=== PATIENT | female | born 1970 | race African-American/Black ===

== ENCOUNTER 2018-02-17 09:43 | Observation (INO) | payer OTHER ==
[~2018-02-17 09:43] MED LIST: BUPIVACAINE HCL 0.25%/EPI. PF 30 ML VIAL IJ ONE; DEXAMETHASONE SOD PHOS 4 MG/ML VIAL ONE; ENOXAPARIN SODIUM 40 MG/0.4 ML DISP.SYRIN SQ ONE; FAMOTIDINE/PF 20 MG/2 ML VIAL ONE; LACTATED RINGERS 1,000 ML IV.SOLN IV ONE; LIDOCAINE HCL/PF 2% 100 MG/5 ML VIAL IJ ONE; ONDANSETRON HCL/PF 4 MG/ 2ML VIAL ONE; PHENYLEPHRINE HCL 10 MG/1 ML ONE; PROPOFOL 200 MG/20 ML VIAL IV ONE; ROCURONIUM BROMIDE 10 MG/ML 5ML VIAL ONE; SEVOFLURANE 250 ML LIQUID IH ONE; SUGAMMADEX 200 mg/2mL 200 MG/2 ML VIAL IV ONE; ceFAZolin SODIUM 1 GM VIAL ONE
[2018-02-17] MEDS ORDERED: fentaNYL CITRATE/PF 100 MCG/ 2ML AMP ONE ×2 (10:00→14:26)
[2018-02-17] MEDS ORDERED: LACTATED RINGERS 1,000 ML IV ONE (11:07)
[2018-02-17] MEDS ORDERED: FAMOTIDINE/PF 20 MG/2 ML VIAL ONE (11:54)
[2018-02-17] MEDS ORDERED: ENOXAPARIN SODIUM 40 MG/0.4 ML DISP.SYRIN SQ ONE (12:15)
[2018-02-17] MEDS ORDERED: HYDROcodone /APAP 5/325 1 EACH TABLET ONE (14:53)
[2018-02-17] MEDS ORDERED: ONDANSETRON HCL/PF 4 MG/ 2ML VIAL ONE (14:54)
[2018-02-17] MEDS ORDERED: ONDANSETRON HCL/PF 4 MG/ 2ML VIAL IVP PRN (16:53)
[2018-02-17] MEDS ORDERED: KETOROLAC TROMETHAMINE 30 MG/1ML VIAL IVP PRN (16:53)
[2018-02-17] MEDS ORDERED: HYDROCODONE/ACETAMINOPHEN 15 ML SOLUTION PO PRN (16:53)
[2018-02-17] MEDS ORDERED: LEVALBUTEROL HCL 1.25 MG/3 ML AMPUL.NEB NEB PRN (16:54)
[2018-02-17] MEDS ORDERED: METOPROLOL TARTRATE 50 MG TABLET PO ONE (16:55)
--- NOTE | 2018-02-17 16:59 | History and Physical Report ---
History of Present Illnes - History of Present Illness Reason for Visit: Surgery History of Present Illness: Patient presents for surgery to remove lap band she had placed in 2010. Hasn't realized the weight loss she wanted and is planning to get a sleeve gastrectomy as soon as possible. She has been feeling well. - Past Medical History Cardiac: HTN Pulmonary: Asthma Psych: Anxiety, Depression Musculoskeletal: Chronic low back pain, Osteoarthritis Infectious Disease: Other (H/o Hep C - s/p treatment 1993) - Past Surgical History Past Surgical History: (x1), Hysterectomy (partial for fibroids), Hernia Repair ([facility]), Other (Lap Band - 2010) - Past Social History Smoke: No Alcohol: None Drugs: None Lives: With Family () - Health Maintenance Health Maintenance: Mammogram. denies: Colonoscopy Influenza Vaccine: Current for this Influenza Season Pneumonia Vaccine: No Resuscitation Status: full Review of Systems - Review of Systems Constitutional: negative: Fever, Weakness Eyes: negative: pain ENT: negative: Ear Pain, Nose Discharge Respiratory: negative: Cough, Shortness of Breath Cardiovascular: negative: Chest Pain Gastrointestinal: negative: Nausea, Vomiting Genitourinary: negative: Dysuria Musculoskeletal: negative: Neck Pain Skin: negative: Rash Neurological: negative: Weakness - Medications/Allergies Allergies/Adverse Reactions: Allergies Allergy/AdvReac Type Severity Reaction Status Date / Time acetaminophen [From Vicodin] Allergy Rash Verified 02/17/18 17:30 hydrocodone [From Vicodin] Allergy Rash Verified 02/17/18 17:30 ibuprofen Allergy Rash Verified 02/17/18 17:30 Home Medications: Home Medications Aspirin 81 mg PO DAILY 02/17/18 Chlorthalidone 25 mg PO DAILY 02/17/18 Clonidine HCl [Catapres] 0.2 mg PO TID 02/17/18 Levalbuterol HCl [Xopenex] 1.25 mg NEB Q4H PRN 02/17/18 amLODIPine BESYLATE [Norvasc] 10 mg PO 0900 02/17/18 Current Inpatient Medications: Current Inpatient Medications Sodium Chloride (Normal Saline) 1,000 mls @ 150 mls/hr IV Q10H [facility] Ketorolac Tromethamine (Toradol) 30 mg IVP Q6 PRN PRN Reason: PAIN Stop: 02/22/18 16:52 Levalbuterol HCl (Xopenex) 1.25 mg NEB Q4 PRN PRN Reason: Wheezing Morphine Sulfate (Depodur) 2 mg IVP Q2 PRN PRN Reason: Severe Pain Ondansetron HCl (Zofran 4 Mg/2 Ml) 4 mg IVP Q6H PRN PRN Reason: Nausea / Vomiting Exam - Exam General: Alert, Oriented to Person, Oriented to Place, Oriented to Time, Cooperative, No acute distress, Morbidly Obese HEENT: Atraumatic, PERRLA, EOMI, Photophobia Neck: Normal Range of Motion Lungs: Clear to auscultation, Normal air movement Cardiovascular: Regular rate, Normal S1, Normal S2, No murmurs Abdomen: Normal bowel sounds, Soft. No: No tenderness (Tender epigastrium. No rebound or guarding.) Integumentary: Normal Extremities: No edema Neurological: Normal gait, Normal speech Psych/Mental Status: Mental status NL, Mood NL Assessment/Plan - Assessment/Plan (1) Morbid obesity Status: Acute Current Visit: Yes Plan: S/P lap band removal. Admit for IVF and pain control. Early ambulation to prevent DVT. PLan to d/c in am. Advance diet as tolerated. Contol nausea. (2) HTN (hypertension) Status: Chronic Current Visit: No Qualifiers: Hypertension type: essential hypertension Qualified Code(s): I10 - Essential (primary) hypertension Plan: Hold diuretics. Watch. (3) Abdominal pain Status: Acute Current Visit: Yes Qualifiers: Abdominal location: epigastric Qualified Code(s): R10.13 - Epigastric pain Plan: Work to control pain with IV pain meds post op and move to oral soon. (4) Asthma Status: Chronic Current Visit: Yes Qualifiers: Asthma severity: mild Asthma persistence: intermittent Asthma complication type: unspecified Qualified Code(s): J45.20 - Mild intermittent asthma, uncomplicated Plan: MIld wheezing noted immediately post op but no drop in O2 SAT. WAtch. Xopenex prn. VTE Assessment - RISK FACTOR SCORE VTE RISK FACTOR SCORES: AGE 40-60 YEARS, MINOR SURGERY/ ANESTHESIA TIME < 1 HOUR - RISK VTE MODERATE RISK: SCORE OF 2 (RISK PROXIMAL DVT 2-4%) PROPHYAXIS NEEDED
[2018-02-17] MEDS: 0.9 % SODIUM CHLORIDE 1,000 ML IV SCH (17:56)
[2018-02-17] MEDS: CloNIDine HCL 0.1 MG TABLET PO SCH (18:00)
[2018-02-17] MEDS: BACLOFEN 10 MG TABLET PO SCH (18:57)
[2018-02-17] MEDS: GABAPENTIN 300 MG CAPSULE PO SCH (18:58)
[2018-02-17 19:04] VITALS: BMI 111.3
[2018-02-17] MEDS: MORPHINE SULFATE 2 MG/ML PREFILLED SYR IVP PRN (20:33)
[2018-02-17] MEDS ORDERED: amLODIPine BESYLATE 5 MG TABLET ONE (21:11)
[2018-02-17] MEDS ORDERED: ASPIRIN EC 81 MG TABLET.DR ONE (21:11)
[2018-02-17] MEDS: TOPIRAMATE 50 MG TABLET PO SCH (21:55)
[2018-02-18] MEDS: 0.9 % SODIUM CHLORIDE 1,000 ML IV SCH ×2 (00:15→06:08)
[2018-02-18] MEDS: MORPHINE SULFATE 2 MG/ML PREFILLED SYR IVP PRN ×3 (03:58→11:08)
--- NOTE | 2018-02-18 08:37 | Discharge Summary ---
Discharge Summary - Discharge Sumary History of Present Illness: Patient presents for surgery to remove lap band she had placed in 2010. Hasn't realized the weight loss she wanted and is planning to get a sleeve gastrectomy as soon as possible. She has been feeling well. Condition at Discharge: Stable Home Medications: Ambulatory Orders Medication Instructions Recorded Aspirin 81 mg PO DAILY 02/17/18 Chlorthalidone 25 mg PO DAILY 02/17/18 Clonidine HCl [Catapres] 0.2 mg PO TID 02/17/18 Levalbuterol HCl [Xopenex] 1.25 mg NEB Q4H PRN 02/17/18 amLODIPine BESYLATE [Norvasc] 10 mg PO 0900 02/17/18 Consultations this Visit: None Procedures this Visit: None Allergies/Adverse Reactions: Allergies Allergy/AdvReac Type Severity Reaction Status Date / Time acetaminophen [From Vicodin] Allergy Rash Verified 02/17/18 17:30 hydrocodone [From Vicodin] Allergy Rash Verified 02/17/18 17:30 ibuprofen Allergy Rash Verified 02/17/18 17:30 Patient Problems: Current Active Problems Problem Status Onset Abdominal pain Acute Morbid obesity Acute Asthma Chronic Discharge Summary: Patient was admitted to OBS after lap band removal. She tolerated her clear liquid diet. Pain was well controlled. Discharged home in good condition. Hospital Course: Discharge Dx: Morbid obesity - s/p lap band removal. HTN. ASthma. Disposition - home
[2018-02-18] MEDS ORDERED: amLODIPine BESYLATE 5 MG TABLET PO SCH (09:00)
[2018-02-18] MEDS ORDERED: ASPIRIN EC 81 MG TABLET.DR PO SCH (09:00)
[2018-02-18] MEDS: CloNIDine HCL 0.1 MG TABLET PO SCH (10:00)
[2018-02-18] MEDS: GABAPENTIN 300 MG CAPSULE PO SCH (10:57)
[2018-02-18] MEDS: BACLOFEN 10 MG TABLET PO SCH (10:57)
[2018-02-18] MEDS: TOPIRAMATE 50 MG TABLET PO SCH (10:58)
[2018-02-18 12:12] VITALS: BP 124/72
== END 2018-02-18 11:35 | disposition home or self-care (01) ==
LOC: SOUTH 09:43 → UNDOADMOB 16:33 → SOUTH 16:33 → UNDODISOB 02-18 11:35
PROVIDERS: ADMIT Family Medicine; ATTEND Family Medicine
DX: Z98.84 Bariatric surgery status (principal); Z48.815 Encounter for surgical aftercare following surgery on the digestive system; I10 Essential (primary) hypertension; J45.909 Unspecified asthma, uncomplicated
CPT/HCPCS: 43774; A9270; G0378; G0379; J0690; J1100; J1650; J2001; J2270; J2370; J2405; J2704; J3010; J7030; J7120; 99217; 99219; S0028; S1016

== ENCOUNTER 2018-05-19 08:13 | Day surgery (SDC) | payer OTHER ==
[2018-05-19] MEDS ORDERED: LACTATED RINGERS 1,000 ML IV ONE (08:29)
[2018-05-19] MEDS ORDERED: SCOPOLAMINE HYDROBROMIDE 1.5MG/72HR PATCH TD ONE ×2 (08:29→08:48)
[2018-05-19] MEDS ORDERED: PREGNANCY TEST KIT 1 EACH KIT MC ONE (08:29)
[2018-05-19] MEDS ORDERED: LEVALBUTEROL HCL 1.25 MG/3 ML VIAL.NEB IH ONE (08:30)
[2018-05-19] MEDS ORDERED: FAMOTIDINE 20 MG/2 ML VIAL ONE ×2 (08:30→08:48)
[2018-05-19] MEDS ORDERED: BUPIV. HCL 0.25% (2.5MG/ML)/EPI. (1:200,000) PF 30 ML VIAL IJ ONE (08:48)
[2018-05-19] MEDS ORDERED: LIDOCAINE HCL 2% PF 100MG/5ML VIAL IJ ONE (08:48)
[2018-05-19] MEDS ORDERED: SEVOFLURANE 250 ML LIQUID IH ONE (08:48)
[2018-05-19] MEDS ORDERED: fentaNYL CITRATE/PF 100 MCG/2 ML INJ. ONE ×2 (08:48→13:47)
[2018-05-19] MEDS ORDERED: MIDAZOLAM HCL 2 MG/2 ML VIAL ONE (08:48)
[2018-05-19] MEDS ORDERED: SODIUM CHLORIDE IRRIG SOLUTION 3,000 ML IRRIG.SOLN IR ONE (08:48)
[2018-05-19] MEDS ORDERED: PROPOFOL 200 MG/20 ML VIAL IV ONE (08:48)
[2018-05-19] MEDS ORDERED: FENTANYL CITRATE/PF 250 MCG/5 ML INJ. ONE (08:48)
[2018-05-19] MEDS ORDERED: ROCURONIUM BROMIDE 10 MG/ML 5ML VIAL ONE (08:48)
[2018-05-19] MEDS ORDERED: ceFAZolin SODIUM 1 GM VIAL ONE (08:48)
[2018-05-19] MEDS ORDERED: LACTATED RINGERS 1,000 ML IV.SOLN IV ONE ×2 (08:48)
[2018-05-19] MEDS ORDERED: DEXAMETHASONE SODIUM PHOSPHATE 10 MG/ML VIAL ONE (08:48)
[2018-05-19] MEDS ORDERED: SUGAMMADEX SODIUM 200 MG/2 ML VIAL IV ONE (08:48)
[2018-05-19] MEDS ORDERED: GLYCOPYRROLATE 0.2 MG/1 ML 1 ML ONE (08:48)
[2018-05-19] MEDS ORDERED: LIDOCAINE HCL 1% PF 300MG/30ML VIAL ONE (08:48)
[2018-05-19] MEDS ORDERED: ePHEDrine SULFATE 50 MG/1 ML IVP ONE (08:48)
[2018-05-19] MEDS ORDERED: ONDANSETRON HCL/PF 4 MG/ 2ML VIAL ONE (08:48)
[2018-05-19] MEDS ORDERED: ENOXAPARIN SODIUM 40 MG/0.4 ML DISP.SYRIN SQ ONE (10:08)
== END 2018-05-19 14:31 | disposition other institution (70) ==
LOC: OPSURG 08:13
PROVIDERS: ATTEND Surgery
DX: E66.01 Morbid (severe) obesity due to excess calories (principal); Z68.42 Body mass index [BMI] 45.0-49.9, adult; I10 Essential (primary) hypertension; K66.0 Peritoneal adhesions (postprocedural) (postinfection); M19.90 Unspecified osteoarthritis, unspecified site
CPT/HCPCS: 43235; 43775; 88305; A9270; J0690; J2001; J2250; J2405; J2704; J3010; J3490; J7120; J7614; S0028; J1650

== ENCOUNTER 2018-05-19 14:32 | Inpatient (IN) | payer OTHER ==
--- NOTE | 2018-05-19 14:47 | History and Physical Report ---
History of Present Illnes - History of Present Illness Reason for Visit: Weight loss surgery History of Present Illness: Patient underwent gastric sleeve today. She has tried numerous weight loss techniques including lap band (had that removed in 2018), diet and exercise. Due to her co-morbidities she underwent gastrectomy. Due to nausea and pain she will be admitted to Acute care for IV hydration, IV antiemetics, and IV pain control. - Past Medical History Cardiac: HTN Pulmonary: Asthma, Sleep Apnea Hepatobiliary: Hep A/B/C (Hep C - s/p treatment in 1993) Psych: Anxiety, Depression Musculoskeletal: Chronic low back pain (Chronic percocet use), Osteoarthritis Infectious Disease: Other (H/o Hep C - s/p treatment 1993) - Past Surgical History Past Surgical History: (x1), Hysterectomy (partial for fibroids), Hernia Repair ([facility]), Other (Lap Band - 2010) - Past Family History Mother Family History: None Father Family History: (LIver disease) - Past Social History Smoke: No Alcohol: None Drugs: None Lives: With Family () - Health Maintenance Health Maintenance: Mammogram. denies: Colonoscopy Influenza Vaccine: Current for this Influenza Season Pneumonia Vaccine: Yes Review of Systems - Review of Systems Constitutional: negative: Fever, Weakness Eyes: negative: pain ENT: negative: Ear Pain, Nose Congestion Respiratory: negative: Cough, Shortness of Breath Cardiovascular: negative: Chest Pain, Palpitations Gastrointestinal: negative: Nausea, Vomiting, Abdominal Pain, Diarrhea, Constipation Genitourinary: negative: Dysuria Musculoskeletal: Back Pain Skin: negative: Rash Neurological: negative: Weakness - Medications/Allergies Allergies/Adverse Reactions: Allergies Allergy/AdvReac Type Severity Reaction Status Date / Time hydrocodone [From Vicodin] Allergy Rash Verified 02/17/18 17:30 ibuprofen Allergy Rash Verified 02/17/18 17:30 Home Medications: Home Medications Albuterol Sulfate [Proair HFA] 2 inh IH Q4H PRN 05/19/18 Metoprolol Tartrate 100 mg PO D 05/19/18 oxyCODONE HCL [Percolone] 10 mg PO TID PRN 05/19/18 Exam - Exam General: Alert, Oriented to Person, Oriented to Place, Oriented to Time, Cooperative, No acute distress, Morbidly Obese HEENT: Atraumatic, PERRLA, EOMI, Mouth Mucous membr. moist/[place], Nose Mucous membr. moist/[place] Neck: Normal Range of Motion Lungs: Clear to auscultation, Normal air movement, Speaks full Sentences Cardiovascular: Regular rate Abdomen: Normal bowel sounds, Soft, Other (Bandages C/D/I), Distended, Decreased Bowel Sounds Integumentary: Normal Extremities: No edema Neurological: Normal gait, Normal speech, Strength Equal Bilat Psych/Mental Status: Mental status NL, Mood NL, Appropriate Affect, Intact Judgment Assessment/Plan - Assessment/Plan (1) S/P laparoscopic sleeve gastrectomy Status: Acute Current Visit: Yes Plan: Patient will be admitted to Acute Care. She will be encouraged to ambulate frequently and use IS every hour while awake. SCD's placed and lovenox given. IVF. Ice chips and advance diet as tolerated per protocol. IV antiemetics and pain control as needed. (2) Chronic back pain Status: Acute Current Visit: Yes Qualifiers: Back pain location: low back pain Back pain laterality: unspecified Sci atica presence: unspecified whether sciatica present Qualified Code(s): M54.5 - Low back pain; G89.29 - Other chronic pain Plan: Patient is currently on percocet tid. We may run into problems controlling back pain with the gastrectomy pain orders. Encourage her to move to help with back in this bed. May need kpad. May need to do her scheduled percocet. (3) Anxiety Status: Chronic Current Visit: No (4) Asthma Status: Chronic Current Visit: No Qualifiers: Asthma severity: mild Asthma persistence: intermittent Asthma complication type: unspecified Qualified Code(s): J45.20 - Mild intermittent asthma, uncomplicated Plan: Xopenex prn. (5) HTN (hypertension) Status: Chronic Current Visit: No Qualifiers: Hypertension type: essential hypertension Qualified Code(s): I10 - Essential (primary) hypertension Plan: Watch BP closely. Hold home meds at this time. May need to reinstitute them. VTE Assessment - RISK FACTOR SCORE VTE RISK FACTOR SCORES: AGE 40-60 YEARS, OBESITY, MAJOR SURGERY/ANESTHESIA TIME > 1 HOUR - RISK VTE HIGH RISK: SCORE OF 3-4 (RISK PROXIMAL DVT 4-8%) PROPHYLAXIS NEEDED
[2018-05-19] MEDS ORDERED: LEVALBUTEROL HCL 1.25 MG/3 ML VIAL.NEB IH PRN (14:48)
[2018-05-19] MEDS ORDERED: ONDANSETRON HCL/PF 4 MG/ 2ML VIAL IVP PRN (14:48)
[2018-05-19] MEDS ORDERED: PROMETHAZINE HCL 25 MG in 0.9 % SODIUM CHLORIDE 50 ML IV PRN (14:48)
[2018-05-19] MEDS ORDERED: MORPHINE SULFATE 2 MG/ML VIAL ONE (15:35)
[2018-05-19] MEDS: 0.9 % SODIUM CHLORIDE 1,000 ML IV SCH (15:40)
[2018-05-19] MEDS: MORPHINE SULFATE 4 MG/ML VIAL IVP PRN ×2 (15:40→19:53)
[2018-05-19 17:31] VITALS: BMI 116.1
[2018-05-19] MEDS: CEFAZOLIN SODIUM/DEXTROSE,ISO 1 GM/50 ML PIGGYBACK IV SCH (19:38)
[2018-05-19] MEDS ORDERED: 0.9 % SODIUM CHLORIDE 50 ML IV ONE (21:21)
[2018-05-19] MEDS: FAMOTIDINE 20 MG/2 ML VIAL IVP SCH (21:56)
[2018-05-20] MEDS: 0.9 % SODIUM CHLORIDE 1,000 ML IV SCH ×4 (01:19→21:24)
[2018-05-20] MEDS: MORPHINE SULFATE 4 MG/ML VIAL IVP PRN ×2 (01:20→06:42)
[2018-05-20] MEDS: CEFAZOLIN SODIUM/DEXTROSE,ISO 1 GM/50 ML PIGGYBACK IV SCH (02:58)
[2018-05-20] MEDS: FAMOTIDINE 20 MG/2 ML VIAL IVP SCH ×2 (09:02→20:34)
[2018-05-20] MEDS: ENOXAPARIN SODIUM 40 MG/0.4 ML DISP.SYRIN SQ SCH (09:22)
--- NOTE | 2018-05-20 10:23 | Inpatient Progress Note ---
Subjective - Required Recertification Statement I anticipate X number of days because-include discharge plan: 1 - Review of Systems Events since last encounter: Alanna was able to ambulate yesterday. She says that her pain is fairly well controlled. She is committed to ambulating, and we discussed the importance of this for pain control as well as gaining her strength back. She has tolerated the post gastrectomy diet and has no c/o nausea. Her CBC is pending. General: Denies: Chills HEENT: Denies: Head Aches Pulmonary: Denies: Dyspnea, Cough Cardiovascular: Denies: Chest Pain Gastrointestinal: Denies: Nausea, Vomiting Genitourinary: Denies: Dysuria Musculoskeletal: Denies: Neck Pain, Shoulder Pain Neurological: Denies: Weakness, Numbness Objective - Exam Vitals and I&O: Vital Signs Temp 97.7 F 05/20/18 09:18 Pulse 54 L 05/20/18 09:18 Resp 18 05/20/18 09:18 BP 164/72 05/20/18 09:18 Pulse Ox 100 05/20/18 09:18 Intake & Output 05/19/18 05/19/18 05/20/18 11:59 23:59 11:59 Intake Total 2350 1110 Output Total 2100 1500 Balance 250 -390 Weight 261 kg 118.388 kg Intake: IV 2350 900 Right Upper arm 2350 900 Oral 210 Output: Urine 2100 1500 Other: Voiding Method Toilet Toilet # Voids 1 # Bowel Movements 0 General: Alert, Oriented to Person, Oriented to Place, Oriented to Time HEENT: Atraumatic, PERRLA, EOMI, Mouth Mucous membr. moist/[place] Neck: Supple, No JVD Lungs: Clear to auscultation, Normal air movement Cardiovascular: Regular rate, Normal S1, Normal S2 Abdomen: Normal bowel sounds, Other (Surgical dressings are dry. scar from previous surgery (midline/lower abdomen)) Extremities: No clubbing, No cyanosis, No edema Skin: Normal Neurological: Normal speech, Strength Equal Bilat Psych/Mental Status: Mental status NL Assessment/Plan - Assessment/Plan (1) S/P laparoscopic sleeve gastrectomy Status: Acute Current Visit: Yes Assessment: Recovering well. Will check CBC today. (2) Chronic back pain Status: Acute Current Visit: Yes Qualifiers: Back pain location: low back pain Back pain laterality: unspecified Sciatica presence: unspecified whether sciatica present Qualified Code(s): M54.5 - Low back pain; G89.29 - Other chronic pain Assessment: Continue current dose of oxycodone (3) Morbid obesity Status: Acute Current Visit: No Assessment: Chronic (4) HTN (hypertension) Status: Chronic Current Visit: No Qualifiers: Hypertension type: essential hypertension Qualified Code(s): I10 - Essential (primary) hypertension Assessment: Restart amlodipine
[2018-05-20] MEDS ORDERED: amLODIPine BESYLATE 5 MG TABLET PO ONE (10:32)
[2018-05-20 11:45] LABS: MEAN CORPUSCULAR HEMOGLOBIN 31.9 pg (28.0-34.0)
[2018-05-20] MEDS: OXYCODONE HCL 5 MG/5 ML SOLN UD CUP PO PRN ×2 (15:42→22:34)
[2018-05-21] MEDS: 0.9 % SODIUM CHLORIDE 1,000 ML IV SCH (03:23)
--- NOTE | 2018-05-21 08:08 | Discharge Summary ---
Discharge Summary - Discharge Sumary History of Present Illness: Patient underwent gastric sleeve today. She has tried numerous weight loss techniques including lap band (had that removed in 2018), diet and exercise. Due to her co-morbidities she underwent gastrectomy. Due to nausea and pain she will be admitted to Acute care for IV hydration, IV antiemetics, and IV pain control. Condition at Discharge: Stable Home Medications: Ambulatory Orders Medication Instructions Recorded Chlorthalidone 25 mg PO DAILY 02/17/18 Clonidine HCl [Catapres] 0.2 mg PO TID 02/17/18 amLODIPine BESYLATE [Norvasc] 10 mg PO 0900 02/17/18 Albuterol Sulfate [Proair HFA] 2 inh IH Q4H PRN 05/19/18 Metoprolol Tartrate 100 mg PO D 05/19/18 oxyCODONE HCL [Percolone] 10 mg PO TID PRN 05/19/18 Consultations this Visit: None Procedures this Visit: Other (S/P Gastric Sleeve) Allergies/Adverse Reactions: Allergies Allergy/AdvReac Type Severity Reaction Status Date / Time hydrocodone [From Vicodin] Allergy Unknown Rash Verified 05/19/18 16:54 ibuprofen Allergy Unknown Rash Verified 05/19/18 16:54 Discharge Summary: Patient is a 48-year-old female that underwent the gastric sleeve procedure and has done very well. She has been very cooperative with her care by ambulating frequently, using her incentive spirometer, and wearing her SCDs while in bed. She has been compliant with her diet during hospitalization. She is having minimal discomfort at this time and minimal nausea- she has been passing gas and belching. She is aware of discharge instructions and what she can and cannot do post surgical- she is aware of the strict diet she must follow to decrease discomfort and have success after procedure. She has family support and family will be taking her home- medications written by surgeon given to patient. She is ready to go home. - Final Diagnosis (1) Chronic back pain Problems: Continue to keep walking when at home to minimize back pain from sitting/lying to long. May use heating pads Right or Left: Right (2) Morbid obesity Problems: S/P GAstric Sleeve Right or Left: Right (3) S/P laparoscopic sleeve gastrectomy Problems: Incision site is without redness, patient has positive bowel sounds, no vomiting, tolerating diet well Right or Left: Right (4) Anxiety Problems: Stable- continue with home treatment. Right or Left: Right (5) Asthma Problems: Stable on home treatment- no resp issues during admission Right or Left: Right (6) HTN (hypertension) Problems: Monitor blood pressure daily- keep log- take to follow up appointment. Right or Left: Right
[2018-05-21] MEDS: OXYCODONE HCL 5 MG/5 ML SOLN UD CUP PO PRN ×2 (09:13→14:42)
[2018-05-21] MEDS: FAMOTIDINE 20 MG/2 ML VIAL IVP SCH (09:13)
[2018-05-21] MEDS: ENOXAPARIN SODIUM 40 MG/0.4 ML DISP.SYRIN SQ SCH (09:13)
[2018-05-21 14:35] VITALS: BP 154/89
== END 2018-05-21 16:50 | disposition home or self-care (01) | DRG 641 ==
LOC: SOUTH 14:32
PROVIDERS: ADMIT Nurse Practitioner Family; ATTEND Nurse Practitioner Family
DX: E66.01 Morbid (severe) obesity due to excess calories (principal); G89.18 Other acute postprocedural pain; R11.2 Nausea with vomiting, unspecified; I10 Essential (primary) hypertension; M19.90 Unspecified osteoarthritis, unspecified site; J45.20 Mild intermittent asthma, uncomplicated; F41.9 Anxiety disorder, unspecified; M54.5 Low back pain; Z68.42 Body mass index [BMI] 45.0-49.9, adult
CPT/HCPCS: 85027; 99222; 99231; 99238; J1650; J2270; J2405; S0028; J7030